=== PATIENT | female | born 1940 | race Caucasian/White ===

== ENCOUNTER 2016-04-04 23:26 | Emergency (ER) | payer MEDICARE, OTHER ==
[~2016-04-04] VITALS: Ht 162.6 cm; Wt 68.0 kg
[2016-04-04] MEDS ORDERED: fentaNYL INJECTION 100 MCG/2 ML AMP IVP STA (23:55)
[2016-04-04] MEDS ORDERED: KETOROLAC 30 MG/ML VIAL IVP STA (23:55)
[2016-04-04] MEDS ORDERED: ACET1TAB43 (23:59)
[2016-04-04] MEDS ORDERED: ALEN70TA47 (23:59)
[2016-04-04] MEDS ORDERED: OLME20TA22 (23:59)
[2016-04-04] MEDS ORDERED: TRAM50TA2 (23:59)
[2016-04-04] MEDS ORDERED: NF-ESOM40C (23:59)
[2016-04-04] MEDS ORDERED: LOVA10TA (23:59)
[2016-04-04] MEDS ORDERED: MEGA RED (23:59)
--- NOTE | 2016-04-04 23:59 | ED General ---
General Chief Complaint: General Problems/Pain Stated Complaint: RT KNEE PAIN Nursing Triage Note: TO ED VIA WC WITH REPORT RIGHT KNEE PAIN, ARTHROSCOPY YESTERDAY BY DR MARROQUIN AT CLINIC. PT IS FROM [place] AND PCP IN [facility]. PT CALLED [facility] AND ADVISED TO COME TO [place] WHERE DR MARROQUIN "IS AT". REPORTS PAIN START 0600 TODAY, SHE IS TO KEEP ELEVATED AND DO EXERCISES SHE IS ATTEMPTING. Nursing Sepsis Screen: No Definite Risk Source of Information: Patient Exam Limitations: No Limitations History of Present Illness Time Seen by Provider: 23:46 Initial Comments Here with report of right knee pain. She had arthroscopic yesterday with cleaning up and anterior cruciate ligament repair. She did well on the first postoperative day but this morning woke up and had pain and has had persistent pain since. Pain is to the area behind the knee and radiates through the knee. She is unable to lift her leg for the knee exercises as discussed by Dr. Marroquin. She does have a in the Yony wrap and is using ice packs. Patient has problems with multiple pain medicines and is currently on tramadol and Tylenol 3. She states this is not helping the pain. Denies breathing problems. Denies significant swelling. Denies fever. Timing/Duration: 12 Hours Severity: Moderate Associated Systoms: No Chest Pain, No Fever/Chills, No Nausea/Vomiting, No Shortness of Air, No Weakness Allergies and Home Medications Allergies Coded Allergies: hydrocodone (Verified Allergy, Unknown, 04/04/16) morphine (Verified Allergy, Unknown, 04/04/16) oxycodone (Verified Allergy, Unknown, 04/04/16) Uncoded Allergies: SULFA (Adverse Reaction, Mild, HEADACHE, 04/05/16) Home Medications (Reported) Acetaminophen with Codeine 1 Each Tablet #20 (Reported) Alendronate Sodium 70 Mg Tablet #12 (Reported) Esomeprazole Magnesium 40 Mg Cap #90 (Reported) Lovastatin 10 Mg Tablet #90 (Reported) Olmesartan Medoxomil 20 Mg Tablet #90 (Reported) Tramadol HCl 50 Mg Tablet #40 (Reported) Constitutional: see HPINo chills, No fever EENTM: no symptoms reported Respiratory: no symptoms reportedNo dyspnea on exertion, No short of breath Cardiovascular: no symptoms reportedNo chest pain, No palpitations Gastrointestinal: no symptoms reportedNo nausea, No vomiting Musculoskeletal: see HPI joint pain joint swelling muscle pain Skin: no symptoms reportedNo change in color, No lesions Psychiatric/Neurological: No Symptoms Reported Past Mcoxvpd-Cmtjpf-Oqpxjy Hx Patient Social History Alcohol Use: Rarely Uses Recreational Drug Use: No Smoking Status: Never a Smoker Recent Foreign Travel: No Contact w/Someone Who Travel: No Recent Infectious Disease Expo: No Recent Hopitalizations: No Physical Abuse Screen: No Sexual Abuse: No Immunizations Up To Date Date of Pneumonia Vaccine: Mar 25, 2011 Date of Influenza Vaccine: Jan 06, 2016 Seasonal Allergies Seasonal Allergies: No Surgeries HX Surgeries: Yes (R ARTHROSCOPY, L TKR, CATARACTS, CARPAL TUNNEL, HEART CATH) Surgeries: Hysterectomy, Joint Replacement, Orthopedic Respiratory Hx Respiratory Disorders: No Cardiovascular Cardiac Disorders: High Cholesterol, Hypertension Neurological Hx Neurological Disorders: No Reproductive System Hx Reproductive Disorders: No [employer] History: Hysterectomy Genitourinary Hx Genitourinary Disorders: No Gastrointestinal Hx Gastrointestinal Disorders: Yes (Diverticulitis) Musculoskeletal Hx Musculoskeletal Disorders: Yes (Hx L TKR) Musculoskeletal Disorders: Arthritis Endocrine Hx Endocrine Disorders: No HEENT HX ENT Disorders: Yes HEENT Disorders: Cataract Cancer Hx Cancer: No Psychosocial Hx Psychiatric Problems: No Integumentary HX Skin/Integumentary Disorder: No Blood Transfusions Hx Blood Disorders: No Reviewed Nursing Assessment Reviewed/Agree w Nursing PMH: Yes Family Medical History Significant Family History: No Pertinent Family Hx Physical Exam Vital Signs Vital Sign - Last 12Hours 04/04/16 23:35 Temp 98.2 Pulse 70 Resp 20 B/P 143/75 Pulse Ox 93 O2 Delivery Room Air Capillary Refill : Less Than 3 Seconds General Appearance: WD/WN Mild Distress (pain right knee) HEENT: PERRL/EOMI Pharynx Normal Neck: Non Tender Supple Respiratory: Lungs Clear Normal Breath Sounds Cardiovascular: Regular Rate, Rhythm No Murmur Gastrointestinal: Non Tender Soft Back: Normal Inspection No CVA Tenderness No Vertebral Tenderness Extremity: Non Tender No Calf Tenderness Neurologic/Psychiatric: Alert Oriented x3 Skin: Normal Color Warm/Dry Progress/Results/Core Measures Results/Orders Lab Results Laboratory Tests Test 04/05/16 00:00 Range/Units Alanine Aminotransferase (ALT/SGPT) 16 0-55 U/L Albumin 3.9 3.2-4.5 G/DL Alkaline Phosphatase 51 40-136 U/L Anion Gap 9 5-14 MMOL/L Aspartate Amino Transf (AST/SGOT) 26 5-34 U/L BUN/Creatinine Ratio 14 Basophils # (Auto) 0.0 0.0-0.1 10^3/uL Basophils (%) (Auto) 0 0-10 % Blood Urea Nitrogen 11 7-18 MG/DL C-Reactive Protein High Sensitivity 3.78 H 0.00-0.50 MG/DL Calcium Level 8.5 8.5-10.1 MG/DL Carbon Dioxide Level 21 21-32 MMOL/L Chloride Level 102 98-107 MMOL/L Creatinine 0.80 0.60-1.30 MG/DL Eosinophils # (Auto) 0.0 0.0-0.3 10^3/uL Eosinophils (%) (Auto) 0 0-10 % Erythrocyte Sedimentation Rate 26 0-30 MM/HR Estimat Glomerular Filtration Rate > 60 Glucose Level 120 H 70-105 MG/DL Hematocrit 32 L 35-52 % Hemoglobin 10.6 L 11.5-16.0 G/DL Lymphocytes # (Auto) 1.5 1.0-4.0 X 10^3 Lymphocytes (%) (Auto) 13 12-44 % Mean Corpuscular Hemoglobin 28 25-34 PG Mean Corpuscular Hemoglobin Concent 33 32-36 G/DL Mean Corpuscular Volume 86 80-99 FL Mean Platelet Volume 8.9 7.4-10.4 FL Monocytes # (Auto) 1.5 H 0.0-1.0 X 10^3 Monocytes (%) (Auto) 13 H 0-12 % Neutrophils # (Auto) 8.5 H 1.8-7.8 X 10^3 Neutrophils (%) (Auto) 74 42-75 % Platelet Count 284 130-400 10^3/uL Potassium Level 3.8 3.6-5.0 MMOL/L Red Blood Count 3.75 L 4.35-5.85 10^6/uL Red Cell Distribution Width 14.1 10.0-14.5 % Sodium Level 132 L 135-145 MMOL/L Total Bilirubin 0.5 0.1-1.0 MG/DL Total Protein 6.2 L 6.4-8.2 G/DL White Blood Count 11.5 H 4.3-11.0 10^3/uL My Orders Orders-GALLO CARDOZO MD Cbc With Automated Diff (04/04/16 23:55) Comprehensive Metabolic Panel (04/04/16 23:55) Hs C Reactive Protein (04/04/16 23:55) Erythrocyte Sedimentation Rate (04/04/16 23:55) Fentanyl Injection (Sublimaze Injection (04/04/16 23:55) Ketorolac Injection (Toradol Injection) (04/04/16 23:55) Ondansetron Injection (Zofran Injectio (04/05/16 00:00) Us Venous Lower Ext Rt (04/05/16 00:00) Medications Given in ED Current Medications Medications Dose Ordered Sig/Lakeisha Route Start Time Stop Time Status Last Admin Dose Admin Ondansetron HCl 4 mg ONCE ONCE IVP 04/05/16 00:00 04/05/16 00:01 DC 04/05/16 00:08 4 MG Vital Signs/I&O Vital Sign - Last 12Hours 04/04/16 04/05/16 04/05/16 23:35 00:08 00:08 Temp 98.2 98.2 98.2 Pulse 70 Resp 20 B/P 143/75 Pulse Ox 93 O2 Delivery Room Air Blood Pressure Mean: 97 Progress Note : Progress Note Seen and evaluated. IV, labs, fentanyl 25 g IV and Zofran 4 mg IV as well as Toradol 30 mg IV ordered. Ultrasound right lower extremity ordered to rule out blood clots after surgery. 0050: Labs reviewed and ultrasound reviewed. Patient is markedly improved. She is able to lift leg now without significant pain and states pain is much better controlled. We will reapply Yony wrap and discharged home. I did discuss with the patient the need to follow-up with Dr. Marroquin. She is to call his office in the morning. Copy of chart to Dr. Marroquin. Discharged home with return precautions. Patient verbalize understanding instructions and agreement with plan. Diagnostic Imaging Diagonstic Imaging: Ultrasound Plain Films/CT/US/NM/MRI: leg Comments Preliminary read shows no evidence of DVT to the right lower extremity. Stat read reading shows no evidence of DVT in the right lower extremity. There is a hypoechoic collection in the right popliteal fossa measuring 3.9 x 2.3 x 3.3 cm. This may represent hematoma or postprocedural fluid collection related to recent arthroscopy versus other etiology such as Galindo's cyst. Departure Impression Impression: Primary Impression: Postoperative pain Disposition: HOME, SELF-CARE Condition: Improved Departure-Patient Inst. Decision time for Depature: 01:00 Referrals: KELL MCKINNEY MD (PCP) Primary Care Physician ANU MARROQUIN MD Patient Instructions: Postoperative Pain (DC) Add. Discharge Instructions: All discharge instructions reviewed with patient and/or family. Voiced understanding. Call Dr. Marroquin's office in the morning for an update on your pain. Let them know that you were seen in the ER. You may take ibuprofen 400 mg every 6 hours as needed for pain additionally if your current pain medicines are not working. You may discuss this with her doctor prior to starting. Return for worse pain , fever, vomiting, weakness, breathing problems or other concerns as needed. Use Yony wrap as prescribed by her doctor. You may rewrap as needed. Continue ice packs to knee. Copy Copies To 1: ANU MARROQUIN MD, TIMOTHY D MD Apr 04, 2016 23:59
[2016-04-05] MEDS ORDERED: ONDANSETRON 4 MG/2 ML (SDV) Z0FRAN IVP ONE
[2016-04-05 00:11] LABS: BASOPHILS % (AUTO) 0 % (0-10); EOSINOPHILS % (AUTO) 0 % (0-10); LYMPHOCYTES # (AUTO) 1.5 X 10^3 (1.0-4.0); LYMPHOCYTES % (AUTO) 13 % (12-44); MEAN CORPUSCULAR HEMOGLOBIN 28 PG (25-34); MEAN CORPUSCULAR HGB CONC 33 G/DL (32-36); MEAN CORPUSCULAR VOLUME 86 FL (80-99); MEAN PLATELET VOLUME 8.9 FL (7.4-10.4); MONOCYTES # (AUTO) 1.5 X 10^3 (0.0-1.0); MONOCYTES % (AUTO) 13 % (0-12); NEUTROPHILS # (AUTO) 8.5 X 10^3 (1.8-7.8); NEUTROPHILS % (AUTO) 74 % (42-75); PLATELET COUNT 284 10^3/uL (130-400); RED BLOOD COUNT 3.75 10^6/uL (4.35-5.85); RED CELL DISTRIBUTION WIDTH 14.1 % (10.0-14.5); WHITE BLOOD COUNT 11.5 10^3/uL (4.3-11.0)
[2016-04-05 00:27] LABS: ALANINE AMINOTRANSFERASE 16 U/L (0-55); ALBUMIN 3.9 G/DL (3.2-4.5); ANION GAP 9 MMOL/L (5-14); ASPARTATE AMINO TRANSFERASE 26 U/L (5-34); BILIRUBIN,TOTAL 0.5 MG/DL (0.1-1.0); BLOOD UREA NITROGEN 11 MG/DL (7-18); BUN/CREATININE RATIO 14; CALCIUM 8.5 MG/DL (8.5-10.1); CARBON DIOXIDE 21 MMOL/L (21-32); CHLORIDE 102 MMOL/L (98-107); GFR ESTIMATED > 60; GLUCOSE 120 MG/DL (70-105); POTASSIUM 3.8 MMOL/L (3.6-5.0); SODIUM 132 MMOL/L (135-145); TOTAL PROTEIN 6.2 G/DL (6.4-8.2); hs C REACTIVE PROTEIN 3.78 MG/DL (0.00-0.50)
[2016-04-05 00:36] LABS: ERYTHROCYTE SEDIMENTATION RATE 26 MM/HR (0-30)
[2016-04-05 01:05] VITALS: BP 148/72
--- NOTE | 2016-04-05 06:35 | Diagnostic Imaging Report ---
PROCEDURE: US right lower extremity venous. INDICATION: Right knee pain after recent surgery EXAMINATION: Grayscale and color Doppler evaluation of the deep veins of the right lower extremity were performed with waveform analysis. FINDINGS: Continuous venous flow is present. No intraluminal filling defect is identified. There is normal compressibility and response to augmentation. No abnormal perivascular fluid collection is identified. There is an approximately 3.9 x 2.3 x 3.3 cm collection of fluid in the right popliteal fossa which may represent a postoperative hematoma or possible complicated Galindo's cyst. IMPRESSION: No ultrasound evidence of right lower extremity deep venous thrombosis. A 3.9 x 2.3 x 3.3 cm collection of fluid in the right popliteal fossa may represent a postoperative hematoma or possible complicated Galindo's cyst. Dictated by: Dictated on workstation # [id number]
== END 2016-04-05 01:05 | disposition home or self-care (01) ==
LOC: ER 23:30
DX: G89.18 Other acute postprocedural pain (principal); I10 Essential (primary) hypertension; Z79.899 Other long term (current) drug therapy
CPT/HCPCS: 36415; 80053; 85025; 85652; 86141; 96374; 96375

== ENCOUNTER → 2018-10-02 | Outpatient (CLI) | payer MEDICARE, OTHER ==
[~2018-10-02] MED LIST: ACET1TAB43; ALEN70TA5; LOVA10TA; MEGA RED; NF-ESOM40C; OLME20TA21; TRAM50TA2
--- NOTE | 2018-10-02 10:38 | Diagnostic Imaging Report ---
PROCEDURE: CT sinuses without contrast TECHNIQUE: Multiple contiguous axial images were obtained through the sinuses without the use of intravenous contrast. Coronal and sagittal reformations were then performed. Auto Exposure Controls were utilized during the CT exam to meet ALARA standards for radiation dose reduction. INDICATION: Chronic sinusitis. COMPARISON: No prior studies are available for comparison. FINDINGS: The frontal sinuses are clear. Ethmoid air cells are clear. The sphenoid is unremarkable. Bilateral maxillary sinuses are clear. No mucosal thickening or air-fluid levels are seen. The ostiomeatal complexes are patent bilaterally. The nasal septum is midline. IMPRESSION: No evidence of sinusitis. Dictated by: Dictated on workstation # [id number]
== END ==
LOC: RAD FS 10:17
PROVIDERS: ATTEND Otolaryngology Otolaryngology/Facial Plastic Surgery
DX: J32.9 Chronic sinusitis, unspecified (principal)
CPT/HCPCS: 70486

== ENCOUNTER 2019-09-27 11:18 | Emergency (ER) | payer MEDICARE, OTHER ==
[~2019-09-27] VITALS: Ht 162.5 cm; Wt 68.1 kg
[~2019-09-27 11:18] MED LIST changes: -TRAM50TA2; +TRM50T
--- OUTSIDE RECORDS SUMMARY | 2019-09-27 11:25 | XMS REPORT ---
Author Author Noemí Espinoza Organization [facility] Address [address] [place] [address] Care Team Providers Care Meter Attendant Name Role Phone Ed Espinoza Unavailable PROBLEMS Type Condition ICD9-CM Code [id number] Code Onset Dates Condition S tatus SNOMED Code Problem Benign neoplasm of skin of trunk, except scrotum D 23.5 Active [id number] ALLERGIES Substance Reaction Event Type Date Status Oxycodone HCl Unknown Drug Allergy May, Active Morphine Sulfate Unknown Drug Allergy May, Active Hydrocodone Bitartrate Unknown Drug Allergy May, Activ e Sulfa Unknown Drug Allergy May, Active ENCOUNTERS Encounter Location Date Diagnosis [facility] [address] [facility] [address] [place] [address] May, Seborrheic keratoses L82.1 ; Encounter for screening for malignant neoplasm of skin Z12.83 ; Actinic keratosis L57.0 ; Benign neoplasm of skin of trunk, except scrotum D23.5 and Lentigo L81.4 [facility] [address] [place] [place], [place] [address] Jun, [facility] [address] [facility] [address] [place] [address] Jun, Benign neoplasm of skin of t runk, except scrotum D23.5 ; Encounter for screening for malignant neoplasm of skin Z12.83 ; Actinic keratosis L57.0 ; Neoplasm of uncertain behavior of skin D48.5 ; Seborrheic keratoses L82.1 and Lentigo L81.4 [facility] [address] [place] [address] Jun, IMMUNIZATIONS No Known Immunizations SOCIAL HISTORY Never Assessed REASON FOR VISIT yearly PLAN OF CARE Activity Details Follow Up 1 Year Reason: VITAL SIGNS Heart Rate 70 /min 2019-06-08 Height 5 ft 1 in in 2019-06-08 Weight 148 lbs 2019-06-08 BMI 27.96 kg/m2 2019-06-08 Blood pressure systolic 110 mm Hg 2019-06-08 Blood pressure diastolic 64 mm Hg 2019-06-08 MEDICATIONS Medication Instructions Dosage Frequency Start Date End Date Duration S tatus MiraLax Active Aspir-81 Active Lovastatin Active Celebrex Active Benicar Active Posture-D Active Alendronate Sodium Activ e RESULTS No Results PROCEDURES Procedure Date Ordered Result Body Site DESTROY LESIONS 2 - 14 EACH June 08, 2019 DESTROY BENIGN/PREMAL LESION June 08, 2019 INSTRUCTIONS MEDICATIONS ADMINISTERED No Known Medications MEDICAL (GENERAL) HISTORY Type Description Date Medical History Actinic keratosis Medical History Lentigo Medical History Seborrheic keratoses Surgical History Gall Bladder Surgical History left knee arthroscopy Surgical History right knee arthroscopy Surgical History cataract removal
--- OUTSIDE RECORDS SUMMARY | 2019-09-27 11:25 | XMS REPORT ---
Author Author [place] [facility] [employer]. 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 Name Role Phone KELL MCKINNEY Irma Unavailable Ed Espinoza Unavailable JULIANE ALMODOVAR, GALLO Giles Unavailable Unavailable GALLO CARDOZO MD Unavailable Unavailable SHANTA ALMODOVAR, ANU Wiley Unavailable Unavailable WALTER VALDEZ Unavailable WALTER VALDEZ Unavailable Unavailable Unavailable Unavailable Ed Espinoza Unavailable Unavailable Unavailable Unavailable Unavailable Unavailable Unavailable Unavailable Unavailable Allergies Normalized Allergy Reported Date of Reaction(s) Care Provider Facility Allergy Type classification allergen Allergy Onset Drug allergy Unclassified Hydrocodone 07-17-2018 - Unknown [facility] (2 sources.) Bitartrate 15589 [facility] Translations: (67987) [ Hydrocodone Bitartrate] Medications Medication Ingredient Drug Dose Dates Status Sig Sig Care Class(es) (Normalized) (Original) Provid er no Aspir-81 no Active no Aspir-81 no information information information Active name (2 sources.) no celecoxib Nonsteroida Active no Celebrex no information l information Active name (2 Anti-inflam sources.) matory Drug no POLYETHYLEN Osmotic Active no MiraLax no information E GLYCOL Laxative information Active name (2 3350 sources.) no Posture-D no Active no Posture-D no information information information Active name (2 sources.) Problems Problem Normalized Date Last Normalized Normalized Provider Fa cility Classification Problem(s) Recorded Problem Problem Sta tus Duration Other skin Actinic Episodic Active [facility] edical disorders (3 keratosis 80462 Clinic[facility] sources.) Translations: (24285) [ - Actinic keratosis L57.0] Other upper Acute Episodic Active WALTER SELF Communit y respiratory [facility]itis, [address] [facility] infections (3 unspecified of [place] sources.) Translations: [place] (22023) [ - Sinusitis acute J01.90, - Acute maxillary sinusitis, recurrence not specified J01.00, - Acute nasopharyngiti s J00] Osteoporosis Age-related Chronic Active WALTER SELF Comm unity (2 sources.) osteoporosis [address] [place] [address] Center without of [facility] current [place] (12111) pathological fracture Translations: [ - Age-related osteoporosis without current pathological fracture M81.0, Age-related osteoporosis without current pathological fracture, Age-related osteoporosis without current pathological fracture] 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 Translations: [address] [place] [address] joint [ Arthropathy, of [facility] disorders (1 unspecified, [place] (06725) source.) site unspecified] 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[address] [place] [address]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 of [facility] (1 source.) Translations: [place] (15766) [ S/P TKR (total knee replacement)] Menopausal Atrophic Chronic Active WALTER SELF Community disorders (1 vaginitis [facility] source.) Translations: of [facility] [ [place] (50627) Postmenopausal atrophic vaginitis] Thyroid Atrophy of Episodic Active WALTER SELF Communit y disorders (2 thyroid - [address] [place] [address] Center sources.) acquired of [place] Translations: [place] (68071) [ Hypothyroidism due to acquired atrophy of thyroid, - Hypothyroidism due to acquired atrophy of thyroid E03.4] Other and Benign Episodic Active Ed Flynn Me dical unspecified neoplasm of [facility] 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 suspected malignant (53025) conditions neoplasm of (not mental skin disorders or Translations: infectious [ - Encounter disease) (5 for screening sources.) for malignant neoplasm of skin Z12.83, - Breast cancer screening by mammogram Z12.31, - Screening mammogram, encounter for Z12.31] Essential Essential Chronic Active GALLO Not Availabl e hypertension (primary) MD JULIANE (75109) (8 sources.) hypertension Translations: [ Essential hypertension, Essential hypertension, - Essential hypertension I10] Esophageal Gastro-esophag Chronic Active WALTER SELF Com munity disorders (3 eal reflux [address] [place] [address] Center sources.) disease with of [facility] esophagitis [place] (59896) Translations: [ GERD with esophagitis, Gastroesophage al reflux disease with esophagitis, - GERD with esophagitis K21.0] Disorders of Hyperlipidemia Chronic Active WALTER SELF ommunity lipid , unspecified [address] [place] [address] metabolism (6 Translations: of [place] sources.) [ - Borderline [place] (57299) hyperlipidemia E78.5, - Mixed hyperlipidemia E78.2, Mixed hyperlipidemia , Mixed hyperlipidemia , Hyperlipidaemi a, Borderline hyperlipidemia ] Neoplasms of Neoplasm of Episodic Active [facility] unspecified uncertain [address]145 [facility] nature or behavior of (01480) uncertain skin behavior (2 Translations: sources.) [ - Neoplasm of uncertain behavior of skin D48.5] Osteoarthritis Osteoarthritis Chronic Active [employer] (1 source.) Translations: [facility] [ Degenerative of [facility] joint disease] [place] (71159) Other ear and Otalgia, right Episodic Active [facility] Community sense organ ear [address] [place] [address] Center disorders (1 Translations: of [place] source.) [ - Otalgia of [place] (64045) right ear H92.01] Other nervous Other acute Episodic Active GALLO Not Av ailable system postprocedural MD JULIANE (94099) disorders (4 pain sources.) Other and Other benign Episodic Active [facility] [place] [address] [facility] benign skin of trunk (09897) neoplasm (3 Translations: sources.) [ - Benign neoplasm of skin of trunk, except scrotum D23.5] Other Other long Episodic Active GALLO Not Availab le aftercare (4 term (current) MD JULIANE (59772) sources.) drug therapy Other skin Other melanin Episodic Active [facility] disorders ([address] [place] [address], P.A. sources.) ion (71370) Translations: [ - Lentigo L81.4] Other skin Other Episodic Active Ed Alexis [place] [facility] edical disorders ([address] [place] [address], P.A. sources.) keratosis (49676) Translations: [ - Seborrheic keratoses L82.1] Other ear and Other Episodic Active WALTER SELF Commun ity sense organ specified [facility] disorders (1 disorders of [facility] source.) right ear [place] (85999) Translations: [ - Pressure sensation in right ear H93.8X1] Other Pain in right Episodic Active GALLO Not Avai lable non-traumatic knee MD JULIANE (16334) joint disorders (4 sources.) Otitis media Unspecified Episodic Active WALTER SELF Comm unity and related nonsuppurative [address] [place] [address] r conditions (3 otitis media, of [facility] sources.) bilateral [place] (24659) Translations: [ - Fluid level behind tympanic membrane of both ears H65.93, - Fluid level behind tympanic membrane of left ear H65.92, - Eustachian tube dysfunction, bilateral H69.83] Procedures Procedure Normalized Procedure Procedure Result Performer Facility Date 06-08-2019 Destruction no information no name [facility], premalignant lesion P.A. (15034) 07-17-2018 Destruction no information no name [facility], premalignant lesion P.A. (07866) 06-08-2019 Destruction no information no name [facility], premalignant lesion P.A. (44931) 2-14 ea 07-17-2018 Destruction no information no name [facility], premalignant lesion P.A. (92272) 2-14 ea 05-13-2018 Mammography no information [facility] (33096) 07-17-2018 Tangential biopsy skin no information no name [facility], single lesion P.A. (42553) Immunizations The data below is from unstructured sourcesNo immunization records. No Known Immunizations No Known Immunizations No Known Immunizations No Known Immunizations No Known Immunizations No Known Immunizations Results Test Name Value Interpretation Reference Range Date Time Fa cility (Normalized) (Normalized) (Medline Reference) laboratory on 2019-05-05 Basophils (Bld) 0.084 10*3/uL (N) 0 - 0.3 10*3/uL [facility] [#/Vol] [facility] (13916) Basophils/100 1.1 % (N) 0.5 - 1 % [facility] He alth WBC (Bld) [facility] (82388) Eosinophils 0.129 10*3/uL (N) 0.05 - 0.5 [facility] He alth (Bld) [#/Vol] 10*3/uL [facility] (90416) Eosinophils/100 1.7 % (N) 1 - 4 % [facility] WBC (Bld) [facility] (44754) Erythrocyte 14.7 % (N) 11.6 - 14.6 % [facility] ealth distribution [facility] (RBC) [facility] [Ratio] (84362) Hematocrit (Bld) 35.9 % (N) 36.1 - 50.3 % [facility] [Volume [facility]] [facility] (12799) Hemoglobin (Bld) 12.3 g/dL (N) 12.1 - 17.2 g/dL [facility] [Mass/Vol] [facility] (83085) Lipase 20 U/L (N) 10 - 73 U/L [facility] Hea lth [Catalytic [facility] activity/Vol] [facility] (79147) Lymphocytes 1.429 10*3/uL (N) 0.9 - 2.9 [facility] alth (Bld) [#/Vol] 10*3/uL [facility] (95232) Lymphocytes/100 18.8 % (N) 20 - 40 % [facility] WBC (Bld) [facility] (01261) MCH (RBC) 29.9 pg (N) 27 - 31 pg [facility] [Entitic mass] [facility] (91709) MCHC (RBC) 34.3 g/dL (N) 32 - 36 g/dL [facility] alth [Mass/Vol] [facility] (83567) MCV (RBC) 87.3 fL (N) 80 - 100 fL [facility] lth [Entitic vol] [facility] (10760) Monocytes (Bld) 0.661 10*3/uL (N) 0.3 - 0.9 [facility] Health [#/Vol] 10*3/uL [facility] (33421) Monocytes/100 8.7 % (N) 2 - 8 % [facility] alth WBC (Bld) [facility] (73550) Neutrophils 5.297 10*3/uL (N) 1.7 - 7 10*3/uL [facility] (Bld) [#/Vol] [facility] (97212) Neutrophils/100 69.7 % (N) 40 - 60 % [facility] WBC (Bld) [facility] (44509) Platelet mean 9.4 fL (N) 7.2 - 11.7 fL [facility] Health volume (Bld) [facility] [Entitic vol] [facility] (27705) Platelets (Bld) 328 10*3/uL (N) 150 - 450 [facility] [#/Vol] 10*3/uL [facility] (47106) RBC (Bld) 4.11 10*6/uL (N) 4.2 - 6.1 [facility] lth [#/Vol] 10*6/uL [facility] (34921) WBC (Bld) 7.6 10*3/uL (N) 3.5 - 10.5 [facility] [#/Vol] 10*3/uL [facility] (52766) laboratory on 2019-04-27 Albumin 4.2 g/dL (N) 3.4 - 5.4 g/dL [facility] [Mass/Vol] [facility] (14482) Albumin/Globulin 1.8 {ratio} (N) 1 - 2.5 {ratio} [facility] [Mass ratio] [facility] (04325) ALP [Catalytic 53 U/L (N) 44 - 147 U/L [facility] activity/Vol] [facility] (06457) ALT [Catalytic 12 U/L (N) 4 - 40 U/L Community ealth activity/Vol] [facility] (51028) AST [Catalytic 18 U/L (N) 10 - 34 U/L [facility] activity/Vol] [facility] (83204) Bilirubin 0.5 mg/dL (N) 0.1 - 1.2 mg/dL [facility] [Mass/Vol] [facility] (20368) Calcium 9.5 mg/dL (N) 8.5 - 10.2 mg/dL [facility]iatric hospital [Mass/Vol] [facility] (64987) Chloride 103 mmol/L (N) 95 - 106 mmol/L [facility] [Moles/Vol] [facility] (81865) Cholesterol 152 mg/dL (N) 180 - 200 mg/dL [facility] [Mass/Vol] [facility] (42106) Cholesterol in 38 mg/dL (L) [facility] HDL [Mass/Vol] [facility] (29007) Cholesterol in 82 mg/dL (N) 0 - 100 mg/dL [facility] LDL [Mass/Vol] [facility] (93201) Cholesterol non 114 mg/dL (N) [facility] HDL [Mass/Vol] [facility] (16684) Cholesterol.tota 4.0 {ratio} (N) [facility] lt l/Cholesterol in [facility] HDL [Mass ratio] [facility] (42991) CO2 [Moles/Vol] 27 mmol/L (N) 23 - 29 mmol/L [facility] (11726) Creatinine 0.86 mg/dL (N) [facility] h [Mass/Vol] [facility] (00930) Free T4 1.0 ng/dL (N) 0.9 - 2.2 ng/dL [facility] [Mass/Vol] [facility] (85914) GFR/1.73 sq M 74 (N) 90 - 120 Community He alth predicted among mL/min/{1.73_m2} mL/min/{1.73_m2} [facility] [place] MDRD [facility] (S/P/Bld) [Vol (64766) rate/Area] GFR/1.73 sq 64 (N) 90 - 120 [facility] th M.predicted MDRD mL/min/{1.73_m2} mL/min/{1.73_m2} [facility] (S/P/Bld) [Vol [facility] rate/Area] (67410) Globulin (S) 2.4 g/dL (N) 2 - 3.5 g/dL [facility] ealt [Mass/Vol] [facility] (30938) Glucose 98 mg/dL (N) 60 - 125 mg/dL [facility] [Mass/Vol] [facility] (50058) Potassium 4.4 mmol/L (N) 3.7 - 5.2 mmol/L [facility] [Moles/Vol] [facility] (56119) Protein 6.6 g/dL (N) 6.4 - 8.3 g/dL [facility] [Mass/Vol] [facility] (77950) Sodium 138 mmol/L (N) 135 - 145 mmol/L [facility] [Moles/Vol] [facility] (96105) Triglyceride 220 mg/dL (H) 0 - 150 mg/dL [facility] [Mass/Vol] [facility] (34484) TSH Qn 0.67 m[IU]/L (N) 0.4 - 4 m[IU]/L [facility] (21172) Urea nitrogen 11 mg/dL (N) 7 - 20 mg/dL [facility] [Mass/Vol] [facility] (41847) Urea NOT APPLICABLE (no code) [facility] nitrogen/Creatin [facility] [Mass ratio] [facility] () laboratory on 2018-10-23 Albumin 4.1 g/dL (N) 3.4 - 5.4 g/dL [facility] [Mass/Vol] [facility] (86692) Albumin/Globulin 1.7 {ratio} (N) 1 - 2.5 {ratio} Comm [facility] Health [Mass ratio] [facility] (23047) ALP [Catalytic 54 U/L (N) 44 - 147 U/L [facility] activity/Vol] [facility] (15499) ALT [Catalytic 16 U/L (N) 4 - 40 U/L Community ealt activity/Vol] [facility] (69328) AST [Catalytic 22 U/L (N) 10 - 34 U/L [facility] Health activity/Vol] [facility] (79125) Bilirubin 0.4 mg/dL (N) 0.1 - 1.2 mg/dL [facility] [Mass/Vol] [facility] (65295) Calcium 9.3 mg/dL (N) 8.5 - 10.2 mg/dL [facility] [Mass/Vol] [facility] (76653) Chloride 101 mmol/L (N) 95 - 106 mmol/L [facility] [Moles/Vol] [facility] (50122) CO2 [Moles/Vol] 28 mmol/L (N) 23 - 29 mmol/L [facility] (13048) Creatinine 0.88 mg/dL (N) [facility] [Mass/Vol] [facility] (85471) GFR/1.73 sq M 72 (N) 90 - 120 Community [facility] predicted among mL/min/{1.73_m2} mL/min/{1.73_m2} [facility] [place] MDRD [facility] (S/P/Bld) [Vol (35450) rate/Area] GFR/1.73 sq 62 (N) 90 - 120 [facility] Heal th M.predicted MDRD mL/min/{1.73_m2} mL/min/{1.73_m2} [facility] (S/P/Bld) [Vol [facility] rate/Area] (41525) Globulin (S) 2.4 g/dL (N) 2 - 3.5 g/dL [facility] ealth [Mass/Vol] [facility] (58474) Glucose 88 mg/dL (N) 60 - 125 mg/dL [facility] [Mass/Vol] [facility] (33230) Potassium 4.5 mmol/L (N) 3.7 - 5.2 mmol/L [facility] [Moles/Vol] [facility] (12305) Protein 6.5 g/dL (N) 6.4 - 8.3 g/dL [facility] [Mass/Vol] [facility] (75658) Sodium 137 mmol/L (N) 135 - 145 [facility]/L [facility] [Moles/Vol] [facility] (01203) Urea nitrogen 13 mg/dL (N) 7 - 20 mg/dL [facility] [Mass/Vol] [facility] (62934) Urea NOT APPLICABLE (no code) [facility] Healt h nitrogen/Creatin [facility] [Mass ratio] [facility] (48547) not yet categorized on 2018-07-17 Pathologist: See Report (no code) [facility] (54848) Vital Signs Vital Sign Value Interpretation Reference Date Time Care Prov ider Facility (Normalized) (Normalized) Range BMI (Body Mass 27.96 kg/m2 (no code) 15 - 25 kg/m2 07-17-2018 K johnathon [facility] Index) 10:50 [facility] (27704) Body height (no code) 06-08-2019 [facility] lam 10:50 [facility] (62138) Body mass 27.96 kg/m2 (no code) 15 - 25 kg/m2 06-08-2019 Ed pena [place] [facility] index (BMI) 10:50 [facility] [Ratio] (48488) Body weight 67.13 kg (no code) kg 06-08-2019 [facility] 10:50 [facility] (01966) Body weight 67.13 kg (no code) kg 07-17-2018 [facility] 10:50 [facility] (06026) Blood Pressure 112/ (no code) Systolic: 90 - 07-17-2018 [facility] 69mm[Hg] 120 mm[Hg] 10:50-0400 68789 [facility] (11288) Diastolic: 60 - 80 mm[Hg] Blood Pressure 110/ (no code) Systolic: 90 - 06-08-2019 Ed [facility] 64mm[Hg] 120 mm[Hg] 10:50040 14695 [facility] (00312) Diastolic: 60 - 80 mm[Hg] Heart rate 70 /min (no code) 60 - 100 /min 06-08-2019 Ed castellano [facility] 10:500400 14532 [facility] (09679) Height (no code) 07-17-2018 [facility] Medic al 10:[id number] [facility] (97223) Pulse (Heart 68 /min (no code) 60 - 100 /min 07-17-2018 Edleidy pena [place] [facility] Rate) 10:500400 30626 [facility] (50488) Interventions No Information Plan of Treatment Normalized Care Care Detail Care Activity Date Care Provider [facility] WALTER SELF [address] [facility] (59220) no information no information no information Ed Alexis 6621 1 [facility] (51271) Goals No Information Social History No Information Functional Status The data below is from unstructured sourcesNo functional status results. Mental Status No Information Encounters Encounter Normalized Encounter Encounter Diagnosis Care Provi lynsey Organization Date Type 10-27-2018 [facility] Essential (primary) WALTER SELF (no [facility] hypertension phone) (no phone) 04-29-2018 [facility] Essential (primary) WALTER SELF (no [facility] hypertension phone) (no phone) 09-16-2018 [facility] Unspecified DIXIE MILNER (no [facility] IN CARE nonsuppurative otitis phone) IN CARE (no phone) media, bilateral 09-11-2018 [facility] Other specified [facility] (no [facility]ARE disorders of phone) IN CARE (no joey ne) Eustachian tube, bilateral 08-19-2018 [facility] Acute maxillary IRAM JOSE ( no phone) [facility] IN CARE sinusitis, unspecified IN CARE (no ph one) 07-06-2018 [facility] Acute sinusitis, FELIPE VENICE SHILPA (no [facility] IN CARE unspecified phone) IN CARE (no joey ne) 05-26-2018 [facility] Acute nasopharyngitis SEUN GAMBLE (no [facility] IN CARE [common cold] phone) IN CARE (no joey ne) 04-29-2018 [facility] no information Doctor Migrati on (no [facility] phone) (no phone) 11-19-2017 [facility] no information Doctor Migrati on (no [facility] phone) (no phone) 11-12-2017 [facility] no information Doctor Migrati on (no [facility] phone) (no phone) 02-02-2015 [facility] no information Doctor Migrati on (no [facility] phone) (no phone) 10-23-2018 Consultation for Essential (primary) WALTER SELF ( [facility] medicine hypertension phone) (no phone) 04-28-2018 Consultation for Hyperlipidemia, WALTER SELF (no [facility] laboratory medicine unspecified phone) (no phone) 07-17-2018 New patient Other benign neoplasm Ed Espinoza (no [facility] [place] - of skin of trunk phone) Dermatology ( no phone) 07-17-2018 - 07-17-2018 06-11-2019 Patient encounter no information WALTER J SELF (no [facility] procedure phone) [facility] (no phone) 06-08-2019 Patient encounter Other seborrheic Ed Espinoza (n o [facility] [place] procedure keratosis phone) Dermatology (no phone) 05-14-2019 Patient encounter no information WALTER J SELF (no [facility] procedure phone) (no phone) [facility] (no phone) 05-05-2019 Patient encounter no information WALTER J SELF (no [facility] procedure phone) (no phone) (no [facility] phone) [place] (no phone) 04-27-2019 Patient encounter no information no name no or ganization name procedure 10-23-2018 Patient encounter no information no name no or ganization name procedure 10-23-2018 Patient encounter no information no name no or ganization name procedure 10-02-2018 Patient encounter no information no name no or ganization name procedure 09-16-2018 Patient encounter no information no name no or ganization name procedure 09-11-2018 Patient encounter no information no name no or ganization name procedure 09-11-2018 Patient encounter no information no name no or ganization name procedure 08-19-2018 Patient encounter no information no name no or ganization name procedure 08-19-2018 Patient encounter no information no name no or ganization name procedure 07-17-2018 Patient encounter no information no name no or ganization name procedure 07-06-2018 Patient encounter no information no name no or ganization name procedure 05-26-2018 Patient encounter no information no name no or ganization name procedure 05-13-2018 Patient encounter no information no name no or ganization name procedure 04-29-2018 Patient encounter no information no name no or ganization name procedure 04-28-2018 Patient encounter no information no name no or ganization name procedure 04-05-2016 Patient encounter no information no name no or ganization name procedure 11-06-2018 Telephone encounter no information WALTER SELF (no [facility] phone) (no phone) 09-12-2018 Telephone encounter no information WALTER SELF (no [facility] phone) (no phone) 07-17-2018 Telephone encounter no information Ed Espinoza ([facility] phone) Dermatology (no phone) 06-16-2018 Telephone encounter no information WALTER SELF (no [facility] phone) (no phone) 05-14-2018 Telephone encounter no information WALTER SELF (no [facility] phone) (no phone) 05-07-2018 Telephone encounter Encounter for WALTER SELF (no [facility] screening mammogram phone) (no phone) for malignant neoplasm of breast 04-28-2018 Telephone encounter Hyperlipidemia, WALTER SELF (n o [facility] unspecified phone) (no phone) 04-23-2018 Telephone encounter no information WALTER SELF (no [facility] phone) (no phone) 03-23-2018 Telephone encounter no information Doctor Migration (no [facility] phone) (no phone) Medical Equipment No Information Payers No Information History general Narrative - Reported Note Type Note Facility History general Narrative - Reported Type Medical Actinic keratosis History Medical Lentigo History Medical Seborrheic keratoses History Surgical Gall Bladder History Surgical left knee arthroscopy History Surgical right knee arthroscopy History Surgical cataract removal History [facility] ([id number]) Advance Directives Directive Response Recor ded Date/Time Advance Directives Yes 0 04/04/16 11:35pm Health Care Power of Jewel Sawyer Yes 04/04/16 11:35pm Organ Donor No 04/04/16 11:35pm Resuscitation Status Full Code 04/04/16 11:35pm Discharge Instructions No hospital discharge instructions. Additional Source Comments This clinical document has been generated using [employer] software that has been certified by the Office of the National Coordinator for Health Information Technology (ONC 15.99.04.3023.Diam.31.00.0.980699) and the National Committee for Fundraising Specialist (NCQA, as an eMeasure certified technology). FOR RECORDS PERTAINING TO PATIENTS WHO ARE OR HAVE BEEN ENROLLED IN A CHEMICAL D EPENDENCY/SUBSTANCE ABUSE PROGRAM, SOME INFORMATION MAY BE OMITTED. This clinica l summary was aggregated from multiple sources. Caution should be exercised in using it in the provision of clinical care. This summary normalizes information from multiple sources, and as a consequence, information in this document may ma terially change the coding, format and clinical context of patient data. In mariana tion, data may be omitted in some cases. CLINICAL DECISIONS SHOULD BE BASED ON T HE PRIMARY CLINICAL RECORDS. [employer] provides no warranty or guara ntee of the accuracy or completeness of information in this document.The followi ng information is based on time limited clinical information UNRECOGNIZED CONTENT PROVIDED BELOW FOR UNRECOGNIZED SECTION REASON FOR VISIT PAROLE OR PROBATION OFFICER skin check nexium refillyearly UNRECOGNIZED CONTENT PROVIDED BELOW FOR UNRECOGNIZED SECTION MEDICAL (GENERAL) HISTORY Type Description Date Surgical History Gall Bladder Surgical History left knee arthroscopy Surgical History right knee arthroscopy Surgical History cataract removal Type Description Date Medical History 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 Medical History Arthropathy, unspeci fied, site unspecified Medical History Degenerative disc disease Medical History Postmenopausal atrop hic vaginitis Medical History Degenerative joint disease Medical History Gastro-esophageal re flux disease with esophagitis Medical History Essential hypertension Medical History Mixed hyperlipidemia Medical History Age-related osteopor osis without current pathological fracture Surgical History arthroscopic knee surgery 01/2000,01/2006 Surgical History right thumb tendon releas e 03/2003 Surgical History knee replacement 07/05/08 Surgical History hysterectomy 07/2011 Surgical History carpel tunnel 2013 Surgical History Breast needle biopsy 04/12/11 Hospitalization History see surgeries
--- OUTSIDE RECORDS SUMMARY | 2019-09-27 11:25 | XMS REPORT ---
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 May Active 02507152 Problem Gastroesophageal reflux disease with esophagitis K21.0 08 Apr, 2015 Active 231571673 Problem S/P TKR (total knee replacement) Z96.659 Jun, Active 878457254991 Problem Mixed hyperlipidemia E78.2 Active 617822089 Problem Arthropathy, unspecified, site unspecified M12.9 Active 017666668 Problem Borderline hyperlipidemia E78.5 Acti ve 99141986 Problem Degenerative disc disease [id number] Aug, A ctive 55835117 Problem Degenerative joint disease M19.90 16 Jun, 2008 Active 597710506 Problem GERD with esophagitis K21.0 Active 653113850 Problem Essential hypertension I10 Active 24904826 Problem Age-related osteoporosis without current pathological fracture M81.0 Active 15770353 ALLERGIES No Information ENCOUNTERS Encounter Location Date Diagnosis [address] [address] Apr, [address] [address] Oct, [address] [address] Oct, Essential hypertension I10 ; Mixed hyper lipidemia E78.2 and Hypothyroidism due to acquired atrophy of thyroid E03.[address] [address] Oct, Essential hypertension I10 [facility] [address] [facility] [place] [address] Aug, Fluid level behind tympanic membrane of both ears H65.93 and Pressure sensation in right ear H93.8X1 [facility] RADHA LUT[facility] [address] [address] Aug, [facility] [address] [place] [facility] [place] [address] Aug, Eustachian tube dysfunction, bilateral H 69.83 and Otalgia of right ear H92.01 [facility] [address] [place] [facility] [place] [address] July, Acute maxillary sinusitis, recurrence no t specified J01.00 and Fluid level behind tympanic membrane of left ear H65.92 [facility] [address] [place] [facility] [place] [address] Jun, Sinusitis acute J01.[address] [address] May, [facility] [address] [facility] [place] [address] May, Acute nasopharyngitis J00 [address] [address] Apr, [address] [address] Apr, Screening mammogram, encounter for Z12.[address] [address] Apr, Breast cancer screening by mammogram Z12 .[address] [address] Apr, Essential hypertension I10 ; GERD with e sophagitis K21.0 ; Mixed hyperlipidemia E78.2 and Age-related osteoporosis without current pathological fracture M81.0 [facility] [address] [facility] [id number] [place] [address] Apr, [address] [address] Apr, Borderline hyperlipidemia E78.5 [facility] [address] [facility] [place] [address] Apr, Borderline hyperlipidemia E78.5 [facility] [address] [facility] [place] [address] Mar, [facility] [address] [facility] [id number] [address] [place] [address] Feb, [facility] [address] [facility] [id number] [address] [place] [address] Oct, [facility] [address] [facility] [id number] [address] [place] [address] Oct, [facility] [address] [facility] [id number] [address] [place] [address] Jan, IMMUNIZATIONS No Known Immunizations SOCIAL HISTORY Never Assessed REASON FOR VISIT nexium refill PLAN OF CARE VITAL SIGNS MEDICATIONS Medication Instructions Dosage Frequency Start Date End Date Duration S tatus Nexium 40 MG Orally Once a day 1 capsule 24h May, 90 days Active RESULTS No Results PROCEDURES No Known procedures INSTRUCTIONS MEDICATIONS ADMINISTERED No Known Medications MEDICAL (GENERAL) HISTORY Type Description Date Medical History Hypothyroidism due to acquired atrophy o f thyroid Medical History Arthropathy, unspecified, site unspecifi ed Medical History Degenerative disc disease Medical History Postmenopausal atrophic vaginitis Medical History Degenerative joint disease Medical History Gastro-esophageal reflux disease with es ophagitis Medical History Essential hypertension Medical History Mixed hyperlipidemia Medical History Age-related osteoporosis without current pathological fracture Surgical History arthroscopic knee surgery 01/2000, 6 Surgical History right thumb tendon release 03/2003 Surgical History knee replacement 07/05/08 Surgical History hysterectomy 07/2011 Surgical History carpel tunnel 2013 Surgical History Breast needle biopsy 04/12/11 Hospitalization History see surgeries
--- OUTSIDE RECORDS SUMMARY | 2019-09-27 11:25 | XMS REPORT ---
Author Author Noemí Espinoza Organization [facility] Address [address] [place] [address]. [address] [place] [address] Care Team Providers Care Marine Scientist Name Role Phone Alexis Ed Unavailable PROBLEMS Type Condition ICD9-CM Code [id number] Code Onset Dates Condition S tatus SNOMED Code Problem Benign neoplasm of skin of trunk, except scrotum D 23.5 Active [id number] ALLERGIES Substance Reaction Event Type Date Status Oxycodone HCl Unknown Drug Allergy Jun, Active Morphine Sulfate Unknown Drug Allergy Jun, Active Hydrocodone Bitartrate Unknown Drug Allergy Jun, Activ e Sulfa Unknown Drug Allergy Jun, Active ENCOUNTERS Encounter Location Date Diagnosis [facility] [address] [facility] [place] [address] [place], [place] [id number] Jun, Benign neoplasm of skin of t runk, except scrotum D23.5 ; Encounter for screening for malignant neoplasm of skin Z12.83 ; Actinic keratosis L57.0 ; Neoplasm of uncertain behavior of skin D48.5 ; Seborrheic keratoses L82.1 and Lentigo L81.4 IMMUNIZATIONS No Known Immunizations SOCIAL HISTORY Never Assessed REASON FOR VISIT MANAGER ECONOMIC skin check PLAN OF CARE Activity Details Follow Up 1 Year Reason: Pending Test Surgical to [facility] Pathology VITAL SIGNS Heart Rate 68 /min 2018-07-17 Height 5 ft 1 in in 2018-07-17 Weight 148 lbs 2018-07-17 BMI 27.96 kg/m2 2018-07-17 Blood pressure systolic 112 mm Hg 2018-07-17 Blood pressure diastolic 69 mm Hg 2018-07-17 MEDICATIONS Medication Instructions Dosage Frequency Start Date End Date Duration S tatus Posture-D Active Lovastatin Active Alendronate Sodium Activ e Celebrex Active Benicar Active Aspir-81 Active MiraLax Active RESULTS No Results PROCEDURES Procedure Date Ordered Result Body Site TANGNTL BX SKIN SINGLE LES July 17, 2018 DESTROY LESIONS 2 - 14 EACH July 17, 2018 DESTROY BENIGN/PREMAL LESION July 17, 2018 INSTRUCTIONS MEDICATIONS ADMINISTERED No Known Medications MEDICAL (GENERAL) HISTORY Type Description Date Surgical History Gall Bladder Surgical History left knee arthroscopy Surgical History right knee arthroscopy Surgical History cataract removal
--- OUTSIDE RECORDS SUMMARY | 2019-09-27 11:26 | XMS REPORT | Continuity of Care Document ---
Author Organization Unknown Address Unknown Phone Unavailable Allergies Active Description Code Type Severity Reaction Onset Reported/Identified Relationship to Patient Clinical Status Yes hydrocodone [id number] Drug Aller gy Unknown N/A 04/04/2016 Yes morphine [id number] Drug Allergy Unknown N/A 04/04/2016 Yes oxycodone [id number] Drug Allergy Unknown N/A 04/04/2016 Yes SULFA SULFA Mild HEADACHE 04/05/2016 Medications There is no data. Problems Date Dx Coded Attending Type Code Diagnosis Diagnosed By 04/05/2016 GALLO CARDOZO MD, Ot G89.18 OTHER ACUTE POSTPROCEDURAL PAIN 04/05/2016 GALLO CARDOZO MD, Ot I10 ESSENTIAL (PRIMARY) HYPERTENSION 04/05/2016 GALLO CARDOZO MD Ot M25.561 PAIN IN RIGHT KNEE 04/05/2016 GALLO CARDOZO MD Ot Z79.899 OTHER GROUP HOME (CURRENT) DRUG THERAPY 04/05/2016 GALLO CARDOZO MD Ot G89.18 OTHER ACUTE POSTPROCEDURAL PAIN 04/05/2016 GALLO CARDOZO MD, Ot I10 ESSENTIAL (PRIMARY) HYPERTENSION 04/05/2016 GALLO CARDOZO MD Ot M25.561 PAIN IN RIGHT KNEE 04/05/2016 GALLO CARDOZO MD Ot Z79.899 OTHER GROUP HOME (CURRENT) DRUG THERAPY 04/06/2016 GALLO CARDOZO MD Ot G89.18 OTHER ACUTE POSTPROCEDURAL PAIN 04/06/2016 GALLO CARDOZO MD, Ot I10 ESSENTIAL (PRIMARY) HYPERTENSION 04/06/2016 GALLO CARDOZO MD Ot M25.561 PAIN IN RIGHT KNEE 04/06/2016 GALLO CARDOZO MD Ot Z79.899 OTHER GROUP HOME (CURRENT) DRUG THERAPY 10/06/2018 ANU WOMACK MD Ot J32 .9 CHRONIC SINUSITIS, UNSPECIFIED 10/22/2018 ANU WOMACK MD Ot J32 .9 CHRONIC SINUSITIS, UNSPECIFIED Procedures There is no data. Results Test Result Range Complete blood count (CBC) with automate d white blood cell (WBC) differential - 04/05/16 00:00 Blood leukocytes automated count (number/volume) 11.5 10*3/uL 4.3-11.0 Blood erythrocytes automated count (number/volume) 3.75 10*6/uL 4.35-5.85 Venous blood hemoglobin measurement (mass/volume) 10.6 g/dL 11.5-16.0 Blood hematocrit (volume fraction) 32 % 35-52 Automated erythrocyte mean corpuscular volume 86 [ foz_us] 80-99 Automated erythrocyte mean corpuscular h emoglobin (mass per erythrocyte) 28 pg 25-34 Automated erythrocyte mean corpuscular h emoglobin concentration measurement (mass/volume) 33 g/dL 32-36 Automated erythrocyte distribution width ratio 14. 1 % 10.0- 14.5 Automated blood platelet count (count/volume) 284 10*3/uL 130-400 Automated blood platelet mean volume measurement 8.9 [foz_us] 7.4-10.4 Automated blood neutrophils/100 leukocytes 74 % 42-75 Automated blood lymphocytes/100 leukocytes 13 % 12-44 Blood monocytes/100 leukocytes 13 % 0-12 Automated blood eosinophils/100 leukocytes 0 % 0-10 Automated blood basophils/100 leukocytes 0 % 0-10 Blood neutrophils automated count (number/volume) 8.5 10*3 1.8-7.8 Blood lymphocytes automated count (number/volume) 1.5 10*3 1.0-4.0 Blood monocytes automated count (number/volume) 1. 5 10*3 0.0-1.0 Automated eosinophil count 0.0 10*3/uL 0 .0-0.3 Automated blood basophil count (count/volume) 0.0 10*3/uL 0.0-0.1 Comprehensive metabolic panel - 04/05/16 00:00 Serum or plasma sodium measurement (moles/volume) 132 mmol/L 135-145 Serum or plasma potassium measurement (moles/volume) 3.8 mmol/L 3.6-5.0 Serum or plasma chloride measurement (moles/volume) 102 mmol/L 98-107 Carbon dioxide 21 mmol/L 21-32 Serum or plasma anion gap determination (moles/volume) 9 mmol/L 5-14 Serum or plasma urea nitrogen measurement (mass/volume ) 11 mg/dL 7-18 Serum or plasma creatinine measurement (mass/volume) 0.80 mg/dL 0.60-1.30 Serum or plasma urea nitrogen/creatinine mass ratio 14 NRG Serum or plasma creatinine measurement w ith calculation of estimated glomerular filtration rate > NRG Serum or plasma glucose measurement (mass/volume) 120 mg/dL 70-105 Serum or plasma calcium measurement (mass/volume) 8.5 mg/dL 8.5-10.1 Serum or plasma total bilirubin measurement (mass/volu me) 0.5 mg/dL 0.1-1.0 Serum or plasma alkaline phosphatase almas surement (enzymatic activity/volume) 51 U/L 40-136 Serum or plasma aspartate aminotransfera se measurement (enzymatic activity/volume) 26 U/L 5-34 Serum or plasma alanine aminotransferase measurement (enzymatic activity/volume) 16 U/L 0-55 Serum or plasma protein measurement (mass/volume) 6.2 g/dL 6.4-8.2 Serum or plasma albumin measurement (mass/volume) 3.9 g/dL 3.2-4.5 Serum or plasma C reactive protein measu rement (mass/volume) - 04/05/16 00:00 Serum or plasma C reactive protein measurement (mass/v olume) 3.78 mg/dL 0.00-0.50 Erythrocyte sedimentation rate by yaritza gren method - 04/05/16 00:00 Erythrocyte sedimentation rate by westergren method 26 mm 0- 30 CMP - 10/23/18 09:36 GLUCOSE 88 mg/dL 65-99 UREA NITROGEN (BUN) 13 mg/dL 7-25 CREATININE 0.88 mg/dL 0.60-0.88 eGFR NON-AFR. SAMOAN 62 mL/min/1.73m2 > OR = 60 eGFR 72 mL/min/1.73m2 > OR = 60 BUN/CREATININE RATIO NOT APPLICABLE (calc) 6-22 SODIUM 137 mmol/L 135-146 POTASSIUM 4.5 mmol/L 3.5-5.3 CHLORIDE 101 mmol/L 98-110 CARBON DIOXIDE 28 mmol/L 20-32 CALCIUM 9.3 mg/dL 8.6-10.4 PROTEIN, TOTAL 6.5 g/dL 6.1-8.1 ALBUMIN 4.1 g/dL 3.6-5.1 GLOBULIN 2.4 g/dL (calc) 1.9-3.7 ALBUMIN/GLOBULIN RATIO 1.7 (calc) 1.0-2. 5 BILIRUBIN, TOTAL 0.4 mg/dL 0.2-1.2 ALKALINE PHOSPHATASE 54 U/L 33-130 AST 22 U/L 10-35 ALT 16 U/L 6-29 TSH w/ FREE T4 - 04/27/19 09:26 TSH 0.67 mIU/L 0.40-4.50 T4, FREE 1.0 ng/dL 0.8-1.8 LIPID PANEL - 04/27/19 09:26 CHOLESTEROL, TOTAL 152 mg/dL <200 HDL CHOLESTEROL 38 mg/dL > OR = 50 TRIGLYCERIDES 220 mg/dL <150 LDL-CHOLESTEROL 82 mg/dL (calc) NRG CHOL/HDLC RATIO 4.0 (calc) <5.0 NON HDL CHOLESTEROL 114 mg/dL (calc) <13 0 CMP - 04/27/19 09:26 GLUCOSE 98 mg/dL 65-99 UREA NITROGEN (BUN) 11 mg/dL 7-25 CREATININE 0.86 mg/dL 0.60-0.88 eGFR NON-AFR. SAMOAN 64 mL/min/1.73m2 > OR = 60 eGFR 74 mL/min/1.73m2 > OR = 60 BUN/CREATININE RATIO NOT APPLICABLE (calc) 6-22 SODIUM 138 mmol/L 135-146 POTASSIUM 4.4 mmol/L 3.5-5.3 CHLORIDE 103 mmol/L 98-110 CARBON DIOXIDE 27 mmol/L 20-32 CALCIUM 9.5 mg/dL 8.6-10.4 PROTEIN, TOTAL 6.6 g/dL 6.1-8.1 ALBUMIN 4.2 g/dL 3.6-5.1 GLOBULIN 2.4 g/dL (calc) 1.9-3.7 ALBUMIN/GLOBULIN RATIO 1.8 (calc) 1.0-2. 5 BILIRUBIN, TOTAL 0.5 mg/dL 0.2-1.2 ALKALINE PHOSPHATASE 53 U/L 37-153 AST 18 U/L 10-35 ALT 12 U/L 6-29 CBC - 05/05/19 11:44 WHITE BLOOD CELL COUNT 7.6 Thousand/uL 3 .8-10.8 RED BLOOD CELL COUNT 4.11 Million/uL 3.8 0-5.10 HEMOGLOBIN 12.3 g/dL 11.7-15.5 HEMATOCRIT 35.9 % 35.0-45.0 MCV 87.3 fL 80.0-100.0 MCH 29.9 pg 27.0-33.0 MCHC 34.3 g/dL 32.0-36.0 RDW 14.7 % 11.0-15.0 PLATELET COUNT 328 Thousand/uL 140-400 MPV 9.4 fL 7.5-12.5 ABSOLUTE NEUTROPHILS 5297 cells/uL 1500- 7800 ABSOLUTE LYMPHOCYTES 1429 cells/uL 850-3 900 ABSOLUTE MONOCYTES 661 cells/uL 200-950 ABSOLUTE EOSINOPHILS 129 cells/uL 15-500 ABSOLUTE BASOPHILS 84 cells/uL 0-200 NEUTROPHILS 69.7 % NRG LYMPHOCYTES 18.8 % NRG MONOCYTES 8.7 % NRG EOSINOPHILS 1.7 % NRG BASOPHILS 1.1 % NRG LIPASE - 05/05/19 11:44 LIPASE 20 U/L 7-60 Encounters ACCT No. Visit Date/Time Discharge Status Pt. Type Provider Facility Loc./Unit Complaint [id number] 06/11/2019 15:00:00 06/11/2019 23:59: 59 CLS Outpatient SELF, WALTER Solis [facility] RADHA LUT[facility] [id number] 05/05/2019 11:15:00 Document Registration [id number] 04/27/2019 09:00:00 Document Registration [id number] 10/23/2018 09:40:00 Document Registration [id number] 04/28/2018 08:45:00 04/28/2018 23:59: 59 CLS [facility] [id number] 10/02/2018 10:17:00 019 23:59:59 CLS Outpatient SHANTA ALMODOVAR, ANU [facility] RAD FS CHRONIC SINUSITIS [id number] 04/04/2016 23:30:00 017 01:05:00 DIS Emergency JULIANE ALMODOVAR, GALLO Giles [facility] ER RT KNEE PAIN
[2019-09-27] MEDS ORDERED: IBUPROFEN TABLET 200 MG TAB PO ONE (12:00)
[2019-09-27 12:05] LABS: BILIRUBIN,URINE NEGATIVE (NEGATIVE); CLARITY,URINE CLEAR; COLOR,URINE YELLOW; GLUCOSE, URINE (UA) NEGATIVE (NEGATIVE); KETONES,URINE NEGATIVE (NEGATIVE); LEUKOCYTE ESTERASE ,URINE NEGATIVE (NEGATIVE); NITRITE,URINE NEGATIVE (NEGATIVE); PROTEIN,URINE NEGATIVE (NEGATIVE)
[2019-09-27 12:06] LABS: BACTERIA,URINE NEGATIVE /HPF; RBC,URINE RARE /HPF; WBC,URINE 0-2 /HPF
--- NOTE | 2019-09-27 12:29 | Diagnostic Imaging Report ---
PROCEDURE: CT abdomen and pelvis without contrast. TECHNIQUE: Multiple contiguous axial images were obtained through the abdomen and pelvis without the use of intravenous contrast. Auto Exposure Controls were utilized during the CT exam to meet ALARA standards for radiation dose reduction. INDICATION: Left-sided lower back pain for several days Images through the abdomen and pelvis were obtained without contrast. Sagittal and coronal reformations were made. There is a 3.6 cm cyst in the left lobe of the liver with a 1 cm cyst present, as well. No suspicious liver lesions are seen. The gallbladder is absent. The bile ducts are not dilated. The spleen, pancreas and adrenals are normal. The kidneys, ureters and bladder are normal. There is diverticulosis of the colon with no acute diverticulitis evident. The appendix is normal. No small bowel obstruction is evident. There is a 3.3 cm localized air and debris collection seen in the 2nd portion of the duodenum which is likely a diverticulum filled with food and secretions. This is situated between the 2nd portion of the duodenum and the head of the pancreas. A necrotic pancreatic head mass or abscess is felt to be less likely. There is no free intraperitoneal air or fluid. There is disc space narrowing at L3-L4, L4-L5 and L5-S1 with no acute bony abnormality seen. IMPRESSION: 1. There are liver cysts present. 2. There is diverticulosis of the colon with no evidence of acute diverticulitis. 3. There is what is probably large air and food filled diverticulum off of the 2nd portion of the duodenum. This would be a very unusual appearance for necrotic neoplasm or abscess of the pancreatic head. 4. There are degenerative changes of the spine with no acute bony abnormality. Dictated by: Dictated on workstation # [id number]
--- NOTE | 2019-09-27 12:31 | ED Back Pain ---
General Chief Complaint: Back Problems Stated Complaint: LOWER BACK PAIN Nursing Triage Note: Patient presents to the ED with c/o of left lower back pain. She states the pain began Saturday and has not improved despite taking tylenol. She denies any known injury but did state she was sweeping the floor and sometimes that causes her back to hurt. Pain is greatest when she goes from a sitting to standing position. Nursing Sepsis Screen: No Definite Risk Source of Information: Patient Exam Limitations: No Limitations History of Present Illness Date Seen by Provider: Sep 27, 2019 Time Seen by Provider: 11:20 Initial Comments The patient is a pleasant 79-year-old female who presents for evaluation of left lower back pain over the last 2-3 days. She states she has been taking Tylenol for pain and applying ice packs which is been helping some. The pain is positional and when she sits up straight it seems to be better than when she is in other positions. She recently did some sweeping and states this is aggravated her back in the past but denies any injury she can recall. She denies any urinary complaints, fevers or chills, chest pain or shortness of breath, abdominal pain, nausea or vomiting, dizziness or syncope. She is alert and oriented 4, calm, and appears to be in no distress. She actually drove her friend to the emergency department to be seen for an unrelated complaint and then decided to check in after the fact. She denies focal weakness or numbness, recent back trauma, or loss of bowel or bladder control. Timing/Duration: 2-3 Days Severity: Mild Pain/Injury Location: Back Method of Injury: Unknown Modifying Factors: Improves With Movement (makes it worse), Improves With Pain Medication (Tylenol helps), Improves With Rest (helps) Associated Symptoms: denies symptoms Allergies and Home Medications Allergies Coded Allergies: hydrocodone (Verified Allergy, Unknown, 04/04/16) morphine (Verified Allergy, Unknown, 04/04/16) oxycodone (Verified Allergy, Unknown, 04/04/16) Uncoded Allergies: SULFA (Adverse Reaction, Mild, HEADACHE, 04/05/16) Patient Home Medication List Home Medication List Reviewed: Yes Review of Systems Constitutional: no symptoms reported EENTM: no symptoms reported Respiratory: no symptoms reported Cardiovascular: no symptoms reported Gastrointestinal: no symptoms reported Genitourinary: no symptoms reported Musculoskeletal: back pain Skin: no symptoms reported Psychiatric/Neurological: No Symptoms Reported All Other Systems Reviewed Negative Unless Noted: Yes Past Oomimxp-Ifagof-Tjljee Hx Past Med/Social Hx: Reviewed Nursing Past Med/Soc Hx Patient Social History Alcohol Use: Denies Use Recreational Drug Use: No Smoking Status: Never a Smoker 2nd Hand Smoke Exposure: No Recent Foreign Travel: No Contact w/Someone Who Travel: No Recent Infectious Disease Expo: No Recent Hopitalizations: No Physical Abuse: No Sexual Abuse: No Mistreated: No Fear: No Immunizations Up To Date Date of Pneumonia Vaccine: Mar 25, 2011 Date of Influenza Vaccine: Jan 06, 2016 Seasonal Allergies Seasonal Allergies: No Past Medical History Surgeries: Yes (R ARTHROSCOPY, L TKR, CATARACTS, CARPAL TUNNEL, HEART CATH) Cardiac, Eye Surgery, Gallbladder, Hysterectomy, Joint Replacement, Orthopedic Respiratory: No Cardiac: Yes High Cholesterol, Hypertension Neurological: No 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 oz. 68.088306si; 25.00 BMI Method:Stated General Appearance: No Apparent Distress, WD/WN HEENT: PERRL/EOMI, Pharynx Normal Neck: Full Range of Motion, Non Tender, Supple Cardiovascular: Regular Rate, Rhythm, No Edema, Normal Peripheral Pulses Respiratory: Lungs Clear, Normal Breath Sounds, No Accessory Muscle Use, No Respiratory Distress Gastrointestinal: Normal Bowel Sounds, No Pulsatile Mass, Non Tender, Soft Back: No CVA Tenderness, No Vertebral Tenderness, Other (muscle tenderness over left lower flank and left paraspinal muscles approx L3-4) Extremity: Normal Capillary Refill, No Pedal Edema Neurologic/Psychiatric: Alert, Oriented x3, No Motor/Sensory Deficits, Normal Mood/Affect Skin: Normal Color, Warm/Dry Progress/Results/Core Measures Results/Orders Lab Results Laboratory Tests Test 09/27/19 11:29 Range/Units Urine Color YELLOW Urine Clarity CLEAR Urine pH 6.0 5-9 Urine Specific [place] 1.010 L 1.016-1.022 Urine Protein NEGATIVE NEGATIVE Urine Glucose (UA) NEGATIVE NEGATIVE Urine Ketones NEGATIVE NEGATIVE Urine Nitrite NEGATIVE NEGATIVE Urine Bilirubin NEGATIVE NEGATIVE Urine Urobilinogen 0.2 < = 1.0 MG/DL Urine Leukocyte Esterase NEGATIVE NEGATIVE Urine RBC (Auto) NEGATIVE NEGATIVE Urine RBC RARE /HPF Urine WBC 0-2 /HPF Urine Squamous Epithelial Cells 2-5 /HPF Urine Crystals NONE /LPF Urine Bacteria NEGATIVE /HPF Urine Casts NONE /LPF Urine Mucus NEGATIVE /LPF Urine Culture Indicated NO My Orders Orders - ROSS FLAHERTY DO Ua Culture If Indicated (09/27/19 11:49) Ct Abdomen/Pelvis Wo (09/27/19 11:49) Ibuprofen Tablet (Motrin Tablet) (09/27/19 12:00) Vital Signs/I&O 09/27/19 11:29 Temp 36.7 Pulse 71 Resp 16 B/P (MAP) 187/71 (109) Pulse Ox 98 O2 Delivery Room Air Blood Pressure Mean: 109 Progress Progress Note : Progress Note @1245 - Patient advised on lab and imaging results which are acutely unremark able. She appears to be in no distress and is walking normally. Advised the patient to follow up with her PCP in the next 1-2 days and to return to the Emergency Department immediately for new or worsening symptoms. She expresses verbal understanding and agreement the plan and is stable for discharge. Departure Impression Primary Impression: Left low back pain Disposition: 01 HOME, SELF-CARE Condition: Stable Departure-Patient Inst. Decision time for Depature: 12:41 Referrals: WALTER VALDEZ MD (PCP/Family) Primary Care Physician Patient Instructions: Low Back Pain in Adults, Lumbar Muscle Strain (DC), Back Stretches on Floor, Back Extension Exercises Add. Discharge Instructions: Follow-up with Dr. Valdez in the next 1-2 days. Return to the emergency Department immediately for new or worsening symptoms. Continue to take Tylenol as needed for pain relief and apply warm heating pads. ROSS FLAHERTY DO Sep 27, 2019 12:31
[2019-09-27 13:00] VITALS: BP 187/71
== END 2019-09-27 13:00 | disposition home or self-care (01) ==
LOC: EDUNIT# 11:18 → ER FS 11:19
DX: M54.5 Low back pain (principal); E78.00 Pure hypercholesterolemia, unspecified; I10 Essential (primary) hypertension; M81.0 Age-related osteoporosis without current pathological fracture; M19.90 Unspecified osteoarthritis, unspecified site; Z79.899 Other long term (current) drug therapy; Z96.652 Presence of left artificial knee joint; Z88.5 Allergy status to narcotic agent; Z88.2 Allergy status to sulfonamides
CPT/HCPCS: 74176; 81000

== ENCOUNTER → 2022-02-13 | Outpatient (CLI) | payer MEDICARE, OTHER ==
[~2022-02-13] MED LIST changes: +ACET-11; -ACET1TAB43; -ALEN70TA5; +ALEN70TA80; -OLME20TA21; +OLME20TA75
--- NOTE | 2022-02-13 20:41 | Diagnostic Imaging Report ---
PROCEDURE: MRI lumbar spine. TECHNIQUE: Multiplanar, multisequence MRI of the lumbar spine was performed without contrast. INDICATION: Back pain. CORRELATED with abdominal pelvic CT 09/27/2019. No prior lumbar dedicated imaging. Lumbar vertebral statures are stable. The alignment unchanged with trace grade 1 degenerative anterolisthesis of L3 on L4. There is mild fatty Modic type I changes across the L5-S1 articular endplates. No acute bony abnormality. The lower thoracic cord and conus appeared normal. No paravertebral mass, hemorrhage or fluid collection. The visualized aorta nonaneurysmal. There are a few bilateral renal cysts, stable. T12-L1: Mild anterior greater than posterior osteophyte disc material results in no significant stenosis. L1-L2: Disc bulge and endplate osteophytes anterior greater than posterior. The spinal canal and neural foramen however are widely patent. L2-L3: There is buckled thickened ligamenta flava, facet arthrosis, disc bulge and endplate osteophytes. The constellation of findings result in moderate to severe degrees of central canal stenosis; moderate left and moderate to severe right neural foraminal narrowing. L3-L4: Buckled thickened ligamenta flava, facet arthrosis, disc bulge and endplate osteophytes result in severe central canal stenosis. There is mild left and moderate right neural foraminal narrowing. L4-L5: There is thickening of the ligamenta flava and facet arthrosis. There is disc desiccation, bulge and endplate osteophytes. The findings result in mild to moderate biforaminal narrowing with mild central canal stenosis. L5-S1: Degenerative facet arthrosis, disc bulge and endplate osteophytes are present. The findings however result in only mild canal and biforaminal stenoses. IMPRESSION: Chronic degenerative grade 1 listhesis with no acute bony pathology. 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 Dictated by: Dictated on workstation # [id number]
== END ==
LOC: RAD 13:15
PROVIDERS: ATTEND Family Medicine
DX: M43.16 Spondylolisthesis, lumbar region (principal); M47.27 Other spondylosis with radiculopathy, lumbosacral region; M48.07 Spinal stenosis, lumbosacral region; M51.17 Intervertebral disc disorders with radiculopathy, lumbosacral region
CPT/HCPCS: 72148

== ENCOUNTER 2022-06-16 11:22 | Emergency (ER) | payer MEDICARE, OTHER ==
[~2022-06-16] VITALS: Ht 160 cm; Wt 69.0 kg
--- NOTE | 2022-06-16 11:26 | ED Neck-Back Pain/Injury ---
General Chief Complaint: Head/Cervical Problems Stated Complaint: NECK PAIN, STIFFNESS, History of Present Illness Date Seen by Provider: Jun 16, 2022 Time Seen by Provider: 11:25 Initial Comments 82-year-old female with PMH of arthritis, is here with complaints of right-sided neck pain which began a couple months ago. Patient went to a chiropractor 4 weeks ago and had adjustments done to her neck with initial improvement in pain, but then the pain worsened. Patient is able to move her head in all directions without too much difficulty. Denies dizziness, falls, trauma, injuries, blurry vision, hearing difficulties, tingling in her extremities, numbness or weakness. Allergies and Home Medications Allergies Coded Allergies: hydrocodone (Verified Allergy, Unknown, 04/04/16) morphine (Verified Allergy, Unknown, 04/04/16) oxycodone (Verified Allergy, Unknown, 04/04/16) Uncoded Allergies: SULFA (Adverse Reaction, Mild, HEADACHE, 04/05/16) Patient Home Medication List Home Medication List Reviewed: Yes Acetaminophen with Codeine (Acetaminophen-Cod #3 Tablet) 1 Each Tablet, (Reported) Entered as Reported by: SAMANTHA BOSTON on 04/04/162358 Alendronate Sodium (Alendronate Sodium) 70 Mg Tablet, (Reported) Entered as Reported by: SAMANTHA BOSTON on 04/04/162358 Esomeprazole Magnesium (Nexium) 40 Mg Cap, (Reported) Entered as Reported by: SAMANTHA BOSTON on 04/04/162358 Lovastatin (Lovastatin) 10 Mg Tablet, (Reported) Entered as Reported by: SAMANTHA BOSTON on 04/04/162358 Olmesartan Medoxomil (Benicar) 20 Mg Tablet, (Reported) Entered as Reported by: SAMANTHA BOSTON on 04/04/162358 Tramadol HCl (Tramadol HCl) 50 Mg Tablet, (Reported) Entered as Reported by: SAMANTHA BOSTON on 04/04/162358 [Josesito 4 Red] , (Reported) Entered as Reported by: SAMANTHA BOSTON on 04/04/162358 Review of Systems Constitutional: no symptoms reported EENTM: no symptoms reported Respiratory: no symptoms reported Cardiovascular: no symptoms reported Gastrointestinal: no symptoms reported Genitourinary: no symptoms reported Musculoskeletal: muscle pain, muscle stiffness, neck pain Skin: no symptoms reported Psychiatric/Neurological: No Symptoms Reported Past Wpbjien-Owhodw-Bksmik Hx Seasonal Allergies Seasonal Allergies: No Past Medical History Surgeries: Yes (R ARTHROSCOPY, L TKR, CATARACTS, CARPAL TUNNEL, HEART CATH) Cardiac, Eye Surgery, Gallbladder, Hysterectomy, Joint Replacement, Orthopedic Respiratory: No Cardiac: Yes High Cholesterol, Hypertension Neurological: No Reproductive Disorders: No CLINICAL OB History: Hysterectomy Genitourinary: No Gastrointestinal: Yes (Diverticulitis) Musculoskeletal: Yes (Hx L TKR) Osteoporosis, Arthritis Endocrine: No HEENT: Yes Cataract Cancer: No Psychosocial: No Integumentary: No Blood Disorders: No Family Medical History No Pertinent Family Hx Physical Exam Vital Signs Vital Signs - First Documented 06/16/22 11:39 Temp 35.7 Pulse 58 Resp 16 B/P (MAP) 153/80 (104) Pulse Ox 98 O2 Delivery Room Air Capillary Refill : Height, Weight, BMI Height: 5'4" Weight: 150lbs. oz. 68.391333dt; 25.00 BMI Method:Stated General Appearance: No Apparent Distress, WD/WN HEENT: PERRL/EOMI Neck: Full Range of Motion, Normal Inspection, Non Tender (Nontender to palpation but patient has muscle spasms on the right paracervical region and paraspinal area next to her scapula on the right side.), Supple Extremity: Normal Inspection, Normal Range of Motion, Non Tender, No Calf Tenderness Neurologic/Psychiatric: Alert, Oriented x3, No Motor/Sensory Deficits, Normal Mood/Affect, collision technician II-XII Norm as Tested Skin: Normal Color Progress/Results/Core Measures Results/Orders My Orders Orders - ANDREA WISDOM MD Cervical Spine 3 View Or Less (06/16/22 11:40) Ketorolac Injection (Toradol Injection) (06/16/22 11:45) Medications Given in ED Current Medications Medications Dose Ordered Sig/Lakeisha Route Start Time Stop Time Status Last Admin Dose Admin Ketorolac Tromethamine 15 mg ONCE ONCE IM 06/16/22 11:45 06/16/22 11:46 DC 06/16/22 11:46 15 MG Vital Signs/I&O 06/16/22 11:39 Temp 35.7 Pulse 58 Resp 16 B/P (MAP) 153/80 (104) Pulse Ox 98 O2 Delivery Room Air Progress Progress Note : Progress Note 1. CERVICAL SPONDYLOSIS: - XR CERVICAL SPINE: Cervical spondylosis - Toradol 15mg STAT - Advised heat application, over the counter Lidoderm patch, Tylenol or Ibuprofen as needed for pain - Follow up with PCP and hebrew teacher within 1 week. Call for appointment -The patient was seen in the ED, and treated appropriately to presentation at a specific point in time. Patient is informed that there is a possibility that disease and illness can evolve and change in acuity rapidly or slowly after patient is discharged from the ER. Precautionary advice given to the patient for immediate return to ER if symptoms worsen or do not resolve, and to seek emergency care sooner rather than later. Pt also advised on the importance of PCP follow up and compliance with management and follow up plan with PCP and/or specialist, as this is part of the management plan. Pt verbally expressed understanding. Diagnostic Imaging Diagonstic Imaging: Xray Plain Films/CT/US/NM/MRI: c-spine Comments [facility], [place] NAME: MO[facility] REC#: [id number] PT STATUS: REG ER : 1940 PHYSICIAN: ANDREA WISDOM MD ADMIT DATE: 06/16/22/ER FS Draft Date of Exam:06/16/22 CERVICAL SPINE 3 VIEW OR LESS INDICATION: Neck pain. FINDINGS: AP, lateral, and odontoid views of cervical spine are obtained. There is diffuse cervical disc space narrowing with endplate spurring. No acute fracture or malalignment is identified. There is sclerosis about the cervical facet joints. The odontoid is intact. Prevertebral soft tissues are unremarkable. IMPRESSION: [id number] diffuse cervical spondylosis without acute cervical spinal abnormality identified. Dictated on workstation # [id number] Dict: 06/16/22 1210 Trans: 06/16/22 1221 [id number] Interpreted by: WARREN HUERTAS MD Electronically signed by: Departure Impression Primary Impression: Cervical spondylosis without myelopathy Disposition: 01 HOME, SELF-CARE Condition: Stable Departure-Patient Inst. Referrals: SELF,WALTER ALMODOVAR (PCP/Family) Primary Care Physician Add. Discharge Instructions: - Advised heat application, over the counter Lidoderm patch, Tylenol or Ibuprofen as needed for pain - Follow up with PCP and hebrew teacher within 1 week. Call for appointment All discharge instructions reviewed with patient and/or family. Voiced understanding. ANDREA WISDOM MD Jun 16, 2022 11:26
[2022-06-16] MEDS ORDERED: KETOROLAC 15 MG/ML VIAL IM ONE (11:45)
--- NOTE | 2022-06-16 12:21 | Diagnostic Imaging Report ---
INDICATION: Neck pain. FINDINGS: AP, lateral, and odontoid views of cervical spine are obtained. There is diffuse cervical disc space narrowing with endplate spurring. No acute fracture or malalignment is identified. There is sclerosis about the cervical facet joints. The odontoid is intact. Prevertebral soft tissues are unremarkable. IMPRESSION: [id number] diffuse cervical spondylosis without acute cervical spinal abnormality identified. Dictated by: Dictated on workstation # [id number]
[2022-06-16 12:36] VITALS: BP 142/76
== END 2022-06-16 12:41 | disposition home or self-care (01) ==
LOC: EDUNIT# 11:22 → ER FS 11:24
DX: M47.812 Spondylosis without myelopathy or radiculopathy, cervical region (principal)
CPT/HCPCS: 72040

== ENCOUNTER → 2022-06-26 | Outpatient (CLI) | payer MEDICARE, OTHER | LOC: CARD 10:38 | PROVIDERS: ATTEND Internal Medicine Cardiovascular Disease | DX: I11.9 Hypertensive heart disease without heart failure (principal); K76.9 Liver disease, unspecified | CPT/HCPCS: 93306 ==

== ENCOUNTER → 2022-07-16 | Outpatient (CLI) | payer MEDICARE, OTHER ==
[~2022-07-16] MED LIST changes: +CATHETER FLUSH 10 ML SYR IVP PRN; +REGADENOSON 0.4 MG/5 ML SYR (LEXISCAN) IV ONE
[2022-07-16 09:08] VITALS: BP 163/74
--- NOTE | 2022-07-16 11:57 | Cardiology Stress Test Report ---
Stress Test Report Date of Procedure/Referring: Date of Procedure: Jul 16, 2022 PCP Reynold Ng MD Admitting Physician Admitting Physician: Attending Physician: Leslie Ohara Indications: LBBB Baseline Heart Rate: 63 Baseline Blood Pressure: Blood Pressure Systolic: 163 Blood Pressure Diastolic: 74 Baseline Vitals Vital Signs Date Time Temp Pulse Resp B/P (MAP) Pulse Ox O2 Delivery O2 Flow Rate FiO2 07/16/22 09:08 63 163/74 (103) 98 Baseline EKG: Baseline EKG: LBBB Summary After explaining the procedure to the patient, she signed a consent and then brought to the stress nuclear laboratory. Patient received 0.4 mg Lexiscan for stress test, ECG, heart rate and blood pressure were monitored continuously. Resting and stress dose of radio tracer were injected, imaging was acquired and reviewed in short axis, horizontal long axis and vertical long axis views. TID: 0.9 SSS: 5 SDS: 0 EF: 56 Patient tolerated Lexiscan well Left bundle branch block persisted during test Motion artifact with fixed defect involving the inferior septum, no significant ischemia was noted on SPECT images Normal left ventricular size, ejection fraction 56% Copy Copies To 1: REYNOLD NG MD, BASHAR J MD Jul 16, 2022 11:56
== END ==
LOC: CARD 07:04
PROVIDERS: ATTEND Physician Assistant
DX: I10 Essential (primary) hypertension (principal); I25.10 Atherosclerotic heart disease of native coronary artery without angina pectoris; I44.7 Left bundle-branch block, unspecified
CPT/HCPCS: 78452; 93017; A9502